=== PATIENT | female | born 2000 | race Two or more races ===

== ENCOUNTER 2021-04-22 21:46 | Emergency (ER) | payer SELFPAY ==
[~2021-04-22] VITALS: Ht 160 cm; Wt 53.2 kg
[2021-04-22] MEDS ORDERED: ACETAMINOPHEN 500MG TABLET PO ONE (22:30)
[2021-04-22 22:37] LABS: CLARITY URINE CLOUDY (CLEAR); COLOR URINE YELLOW (YELLOW); KETONES URINE NEGATIVE (NEGATIVE); LEUKOCYTE ESTERASE URINE 1+ (NEGATIVE); NITRITE URINE POSITIVE (NEGATIVE); OCCULT BLOOD URINE NEGATIVE (NEGATIVE); PH URINE 6.5 (4.5-8.0); PROTEIN URINE NEGATIVE (NEGATIVE); SPECIFIC GRAVITY URINE 1.023 (1.005-1.030); UROBILINOGEN URINE 0.2 E.U./dL (0.2-1.0)
[2021-04-22] MEDS ORDERED: CEPHALEXIN 250MG CAPSULE PO NR (23:30)
[2021-04-22 23:59] LABS: BASOPHILS % 0.4 % (0.0-2.0); EOSINOPHILS % 0.6 % (0.0-5.0); HEMATOCRIT. 36.9 % (36.0-48.0); HEMOGLOBIN. 12.6 g/dL (12.0-16.0); LYMPHOCYTES % 32.3 % (20.0-50.0); MEAN CORPUSCULAR HEMOGLOBIN 28.7 pg (28.0-32.0); MEAN CORPUSCULAR VOLUME 84.6 fL (81.0-99.0); MEAN PLATELET VOLUME 8.3 fl (7.4-10.4); MONOCYTES % 7.3 % (2.0-8.0); NEUTROPHILS % 59.4 % (40.0-76.0); PLATELET 251 x1000/uL (130-400); RED BLOOD CELL COUNT 4.37 mill/uL (4.2-5.4)
[2021-04-23 00:04] LABS: CHLORIDE 106 mEq/L (98-107)
[2021-04-23 00:34] LABS: B-HCG QUANTITATIVE 60105 mIU/mL (<3)
[2021-04-23] MEDS ORDERED: CEPH500T MT (00:38)
[2021-04-23] MEDS ORDERED: PREN1COM12 MT (00:38)
[2021-04-23 00:45] VITALS: BP 113/65
== END 2021-04-23 01:02 | disposition home or self-care (01) ==
LOC: ER 21:46
DX: O23.42 Unspecified infection of urinary tract in pregnancy, second trimester (principal); Z3A.15 15 weeks gestation of pregnancy
CPT/HCPCS: 36415; 76700; 76805; 80053; 81003; 81025; 84702; 85025; 86850; 86900; 99285

== ENCOUNTER 2021-08-06 12:32 | Observation (INO) | payer MEDICAID ==
[~2021-08-06] VITALS: Ht 165.1 cm; Wt 61.7 kg
[~2021-08-06 12:32] MED LIST: CEPH500T MT; NITR-87 MT; PREN1COM12 MT; TOPUD PO
[2021-08-06] MEDS ORDERED: DEXT 5%/LACTATED RINGERS 1,000 ML IV SCH (13:15)
[2021-08-06 14:08] LABS: BASOPHILS % 0.4 % (0.0-2.0); EOSINOPHILS % 0.3 % (0.0-5.0); HEMATOCRIT. 30.7 % (36.0-48.0); HEMOGLOBIN. 10.5 g/dL (12.0-16.0); LYMPHOCYTES % 16.3 % (20.0-50.0); MEAN CORPUSCULAR HEMOGLOBIN 28.6 pg (28.0-32.0); MEAN CORPUSCULAR VOLUME 83.5 fL (81.0-99.0); MEAN PLATELET VOLUME 8.8 fl (7.4-10.4); MONOCYTES % 7.9 % (2.0-8.0); NEUTROPHILS % 75.1 % (40.0-76.0); PLATELET 216 x1000/uL (130-400); RED BLOOD CELL COUNT 3.67 mill/uL (4.2-5.4); RED CELL DISTRIBUTION WIDTH 14.2 % (11.6-14.6)
[2021-08-06 14:11] LABS: CHLORIDE 111 mEq/L (98-107)
[2021-08-06 14:49] LABS: CLARITY URINE CLOUDY (CLEAR); COLOR URINE YELLOW (YELLOW); KETONES URINE NEGATIVE (NEGATIVE); LEUKOCYTE ESTERASE URINE 2+ (NEGATIVE); NITRITE URINE POSITIVE (NEGATIVE); OCCULT BLOOD URINE NEGATIVE (NEGATIVE); PROTEIN URINE 1+ (NEGATIVE); SPECIFIC GRAVITY URINE 1.018 (1.005-1.030); UROBILINOGEN URINE 0.2 E.U./dL (0.2-1.0)
[2021-08-06] MEDS ORDERED: CEFAZOLIN 2,000 MG in DEXT 5% WATER 100 ML IV NR (17:30)
== END 2021-08-06 18:30 | disposition home or self-care (01) ==
LOC: 8 EST LDRP 12:32
PROVIDERS: ADMIT Obstetrics & Gynecology; ATTEND Obstetrics & Gynecology
DX: O21.2 Late vomiting of pregnancy (principal); O99.891 Other specified diseases and conditions complicating pregnancy; M54.9 Dorsalgia, unspecified; R42 Dizziness and giddiness; Z3A.31 31 weeks gestation of pregnancy
CPT/HCPCS: 36415; 59025; 80053; 81003; 85025; 87077; 87086; 87186; 96365; G0378; J0690; J7060; 96360; 96361; 99281

== ENCOUNTER 2021-08-17 11:29 | Observation (INO) | payer MEDICAID ==
[~2021-08-17] VITALS: Ht 165.1 cm; Wt 63.0 kg
[2021-08-17] MEDS ORDERED: LACTATED RINGERS 1,000 ML IV SCH (12:00)
[2021-08-17] MEDS: TERBUTALINE SULFATE 1MG/ML VIAL SUBCUT PRN ×2 (12:14→14:10)
[2021-08-17 12:32] LABS: CLARITY URINE CLOUDY (CLEAR); COLOR URINE YELLOW (YELLOW); KETONES URINE NEGATIVE (NEGATIVE); LEUKOCYTE ESTERASE URINE NEGATIVE (NEGATIVE); NITRITE URINE NEGATIVE (NEGATIVE); OCCULT BLOOD URINE NEGATIVE (NEGATIVE); PROTEIN URINE NEGATIVE (NEGATIVE); SPECIFIC GRAVITY URINE 1.014 (1.005-1.030)
[2021-08-17 12:39] LABS: CHLORIDE 109 mEq/L (98-107)
[2021-08-17] MEDS ORDERED: CEFAZOLIN 2,000 MG in DEXT 5% WATER 100 ML IV SCH (14:00)
== END 2021-08-17 14:45 | disposition home or self-care (01) ==
LOC: 8 EST LDRP 11:29
PROVIDERS: ADMIT Obstetrics & Gynecology; ATTEND Obstetrics & Gynecology
DX: O26.893 Other specified pregnancy related conditions, third trimester (principal); R10.2 Pelvic and perineal pain; O21.2 Late vomiting of pregnancy; Z3A.32 32 weeks gestation of pregnancy
CPT/HCPCS: 36415; 76805; 76818; 80053; 81003; 96361; 96365; 96372; 99281; G0378; J0690; J3105; J7060; 59025; 96360; J7120; G0379